=== PATIENT | male | born 1955 | race Caucasian/White ===

== ENCOUNTER 2017-01-29 14:03 | Emergency (ER) | payer OTHER ==
[~2017-01-29] VITALS: Ht 175.3 cm; Wt 102.1 kg
[2017-01-29 14:14] VITALS: BP 175/93
[2017-01-29] MEDS ORDERED: NEXIUM20 M1 PO (14:34)
--- NOTE | 2017-01-29 15:07 | ED NECK/BACK PAIN COMPLAINT ---
History of Present Illness General Chief Complaint: Low Back Pain/Injury Stated Complaint: BACK PAIN BELOW LEFT SHOULDER BLADE Source: patient Exam Limitations: no limitations Vital Signs & Intake/Output Vital Signs & Intake/Output Vital Signs Date Time Temp Pulse Resp B/P B/P Pulse O2 O2 Flow FiO2 Mean Ox Delivery Rate 01/29 1414 98.5 73 18 175/93 98 Room Air Allergies Coded Allergies: No Known Allergies (01/29/17) Reconcile Medications Diazepam (Valium) 5 MG TABLET 1 TAB PO TID SPASMS Esomeprazole Magnesium (Nexium) 20 MG CAPSULE.DR 1 CAP PO BID GI (Reported) Ibuprofen 800 MG TABLET 1 TAB PO TID PAIN Methylprednisolone. (Medrol) 4 MG TAB.DS.PK 1 DP PO AD NERVE PAIN 6 on day 1 then reduce by one tablet daily until gone Oxycodone HCl/Acetaminophen (Percocet 5-325 MG Tablet) 5 MG-325 MG TABLET 1-2 TAB PO BID PAIN Triage Note: 62 YO MALE TO TRIAGE C/O PAIN IN L SIDE OF UPPER BACK RADIATING TO L ELBOW. STATES "I MIGHT HAVE BEEN TO AGGRESSIVE LIFTING YESTERDAY" STATES FEELS LIKE HIS ELBOW IS ON FIRE. PER PT HE HAS HAD ISSUES WITH THIS PAIN FOR "MONTHS" BUT TODAY IT IS WORSE. Triage Nurses Notes Reviewed? yes Onset: Abrupt Duration: day(s):, constant, continues in ED Timing: recent history Quality/Severity: moderate, severe Radiation: left arm Method of Injury: unknown Loss of Consciousness: no loss of consciousness HPI: 62-year-old male comes into emergency room for further evaluation of left-sided shoulder/upper back pain that radiates down into his left arm. Patient reports he's had some tightness to this area for a couple months but recently over the past few days he's had increased pain. Some associated tingling in his fingers. Denies any chest pain or shortness of breath. Pain is worse with certain range of motion. Patient reports it feels like nerve impingement pain. Patient reports he cannot find any comfortable position. Aleve at home not helping. Denies any falls or trauma. Denies any other associated symptoms. (JAZMYN DIGGS) Past History Travel History Traveled to [place] past 21 day No Medical History Any Pertinent Medical History? see below for history Neurological: NONE EENT: NONE Cardiovascular: NONE Respiratory: NONE Gastrointestinal: GERD Hepatic: NONE Renal: NONE Musculoskeletal: NONE Psychiatric: NONE Endocrine: NONE Blood Disorders: NONE Cancer(s): NONE [employer] OPERATOR/Reproductive: NONE Surgical History Surgical History: non-contributory Psychosocial History What is your primary language Croatian Tobacco Use: Current Daily Use Daily Tobacco Use Amount/Type: => 5 Cigarettes daily Family History Hx Contributory? No (JAZMYN DIGGS) Review of Systems Review of Systems Constitutional: Reports: no symptoms. Eyes: Reports: no symptoms. Ears, Nose, Throat, Mouth: Reports: no symptoms. Respiratory: Reports: no symptoms. Cardiovascular: Reports: no symptoms. Gastrointestinal/Abdominal: Reports: no symptoms. Musculoskeletal: Reports: see HPI. Skin: Reports: no symptoms. Neurological/Psychological: Reports: no symptoms. All Other Systems: Reviewed and Negative (JAZMYN DIGGS) Physical Exam Physical Exam General Appearance: well developed/nourished, mild distress Head: atraumatic Eyes: Bilateral: normal appearance. Ears, Nose, Throat, Mouth: hearing grossly normal, moist mucous membrane Neck: normal inspection, supple, full range of motion Respiratory: normal breath sounds, no respiratory distress Cardiovascular: regular rate/rhythm Back: normal inspection Extremities: normal range of motion, full range of motion of left shoulder, negative empty can test, pain with certain movements, Neurologic/Psych: awake, alert, oriented x 3, normal mood/affect Skin: intact, normal color, warm/dry (JAZMYN DIGGS) Progress Differential Diagnosis: aortic dissection, herniated disc, myofascial strain, pyelo/UTI, spinal cord inj, thoracic outlet syn, T/L spine injury, ureterolithiasis, SC Plan of Care: Orders Procedure Date/time Status EKG 01/29 1416 Active Initial ED EKG: normal intervals, normal p-waves, normal sinus rhythm, rate (72) (JAZMYN DIGGS) Departure Departure Disposition: HOME OR SELF CARE Condition: Stable Clinical Impression Primary Impression: Radicular pain of shoulder Referrals: SUSAN GR,MERVIN Gonzalez (PCP/Family) Additional Instructions: Take prednisone, ibuprofen, Percocet, and Valium as prescribed. Return immediately if any chest pain shortness of breath or any other concerns worsening symptoms. Please go over all results of today's visit with your primary care doctor. Contact your primary care doctor to let them know you were here in the emergency room. There may be nonspecific findings which may not be related to your visit today here in the emergency room but may require further evaluation and chronic monitoring by your primary care doctor. If you had a laceration today the chance of foreign body always remains. You should follow-up with your primary care doctor for recheck in 3-5 days for a wound check. If you had an x-ray done there is a chance that a fracture could have been missed on initial read and you should follow-up with your primary care doctor for repeat x-rays if symptoms persist. If your blood pressure was elevated here in the emergency room please have rechecked by her primary care doctor within the next 48 hours by your primary care doctor. If you were prescribed a narcotic here in the emergency room or any type of controlled substances you're not allowed to drive while taking this medication or operate any type of heavy machinery. Narcotics can make you feel lightheaded dizziness nausea and can cause constipation. You may need to pick out hand a stool softener. Thank you for choosing [facility] emergency room. Please return to the emergency room immediately if you have any other concerns worsening of symptoms. Departure Forms: Customer Survey General Discharge Information Prescriptions: Current Visit Scripts Oxycodone HCl/Acetaminophen (Percocet 5-325 MG Tablet) 1-2 TAB PO BID #20 TAB Diazepam (Valium) 1 TAB PO TID #20 TAB Ibuprofen 1 TAB PO TID #30 TAB Methylprednisolone. (Medrol) 1 DP PO AD #1 DP 6 on day 1 then reduce by one tablet daily until gone Comments 01/29/2017 3:40:05 PM Pain is consistent with musculoskeletal/radicular type pain. There is no clinical suspicion for acute SC at this time. He clinically looks well otherwise. EKG within normal limits. No suspicion for aortic dissection. Symptoms of a going on for quite some time but worse recently over the past couple days. Patient treated symptomatically. Return if any other concerns. Patient understands and agrees with plan of care. Case discussed with Dr. Flowers. (JAZMYN DIGGS) PA/LIFT ELECTRICIAN Co-Sign Statement Statement: ED Attending supervision documentation- [] I saw and evaluated the patient. I have also reviewed all the pertinent lab results and diagnostic results. I agree with the findings and the plan of care as documented in the PA's/LIFT ELECTRICIAN's documentation. [X] I have reviewed the ED Record and agree with the PA's/LIFT ELECTRICIAN's documentation. [] Additions or exceptions (if any) to the PAs/LIFT ELECTRICIAN's note and plan are summarized below: [] (ALYSON GR,MECHELLE Cerda)
[2017-01-29] MEDS ORDERED: MEDROL4 M2 PO (15:13)
[2017-01-29] MEDS ORDERED: VALIUM5 M2 PO (15:13)
[2017-01-29] MEDS ORDERED: PERCOCET 5-3251 EACH PO (15:13)
[2017-01-29] MEDS ORDERED: IBUPROFEN800 M1 PO (15:13)
== END 2017-01-29 15:23 ==
LOC: ERH 14:03
DX: M54.10 Radiculopathy, site unspecified (principal)
CPT/HCPCS: 93005; 93010; 96372; J1885